=== PATIENT | male | born 1985 | race Hispanic/Latino ===

== ENCOUNTER 2019-04-14 01:43 | Emergency (ER) | payer SELFPAY ==
[2019-04-14 01:52] VITALS: BP 137/80
--- NOTE | 2019-04-14 03:37 | Emergency Department Report ---
- General Chief complaint: Extremity Injury, Lower Stated complaint: BITING SENSATION ON THIGH AND LEG Time Seen by Provider: 04/14/19 03:19 Source: patient Mode of arrival: Ambulatory Limitations: No Limitations - History of Present Illness Initial comments: 33-year-old male presents to emergency department complaining of possible ingestion of a parasite. States he went over some friend's house who brought some full back from [place] without clearing customs which she consumed O about 2 weeks ago. He states that one week after eating food. He felt little bumps on his arm that felt like it had movement underneath. He developed another one to his forearm and then one to the left hip. All bones are side. No discharge MD complaint: rash, insect bite/sting -: Gradual, days(s) Tetanus Up to Date: no Location: LUE, LLE Severity: mild Quality: dull Consistency: constant Improves with: none Worsens with: none Context: none Associated symptoms: itching - Related Data Previous Rx's Medication Instructions Recorded Last Taken Type HYDROcodone/APAP 5-325 [[place] 1 each PO Q6HR PRN #10 tablet 07/01/13 Unknown Rx 5/325 mg] Ondansetron [Zofran] 4 mg PO Q6HR PRN #10 tablet 07/01/13 Unknown Rx HYDROcodone/APAP 5-325 [[place] 1 each PO Q6HR PRN #10 tablet 02/11/15 Unknown Rx 5/325] Ibuprofen [Motrin] 800 mg PO Q8H PRN #30 tablet 02/11/15 Unknown Rx methOCARBAMOL [Robaxin] 500 mg PO Q6H PRN #20 tablet 02/11/15 Unknown Rx Mebendazole (Nf) [Vermox Chew (Nf)] 100 mg PO ONCE #1 tab 04/14/19 Unknown Rx Permethrin 5% [Acticin 5% CREAM] 60 gm TP ONCE #1 tube 04/14/19 Unknown Rx Allergies Allergy/AdvReac Type Severity Reaction Status Date / Time No Known Allergies Allergy Unverified 07/01/13 09:50 Abscess Boil HPI - HPI Chief Complaint: Extremity Injury, Lower Stated Complaint: BITING SENSATION ON THIGH AND LEG Time Seen by Provider: 04/14/19 03:19 Home Medications: Previous Rx's Medication Instructions Recorded Last Taken Type HYDROcodone/APAP 5-325 [[place] 1 each PO Q6HR PRN #10 tablet 10/12/13 Unknown Rx 5/325 mg] Ondansetron [Zofran] 4 mg PO Q6HR PRN #10 tablet 07/01/13 Unknown Rx HYDROcodone/APAP 5-325 [[place] 1 each PO Q6HR PRN #10 tablet 02/11/15 Unknown Rx 5/325] Ibuprofen [Motrin] 800 mg PO Q8H PRN #30 tablet 02/11/15 Unknown Rx methOCARBAMOL [Robaxin] 500 mg PO Q6H PRN #20 tablet 02/11/15 Unknown Rx Mebendazole (Nf) [Vermox Chew (Nf)] 100 mg PO ONCE #1 tab 04/14/19 Unknown Rx Permethrin 5% [Acticin 5% CREAM] 60 gm TP ONCE #1 tube 04/14/19 Unknown Rx Allergies/Adverse Reactions: Allergies Allergy/AdvReac Type Severity Reaction Status Date / Time No Known Allergies Allergy Unverified 07/01/13 09:50 ED Review of Systems ROS: Stated complaint: BITING SENSATION ON THIGH AND LEG Other details as noted in HPI Comment: All other systems reviewed and negative ED Past Medical Hx - Past Medical History Previous Medical History?: Yes Additional medical history: Chronic Pancreatitis, Left chest lump - Surgical History Past Surgical History?: No - Social History Smoking Status: Current Every Day Smoker Substance Use Type: None - Medications Home Medications: Home Medications Medication Instructions Recorded Confirmed Last Taken Type HYDROcodone/APAP 5-325 [[place] 1 each PO Q6HR PRN #10 tablet 07/01/13 Unknown Rx 5/325 mg] Ondansetron [Zofran] 4 mg PO Q6HR PRN #10 tablet 07/01/13 Unknown Rx HYDROcodone/APAP 5-325 [[place] 1 each PO Q6HR PRN #10 tablet 02/11/15 Unknown Rx 5/325] Ibuprofen [Motrin] 800 mg PO Q8H PRN #30 tablet 02/11/15 Unknown Rx methOCARBAMOL [Robaxin] 500 mg PO Q6H PRN #20 tablet 02/11/15 Unknown Rx Mebendazole (Nf) [Vermox Chew (Nf)] 100 mg PO ONCE #1 tab 04/14/19 Unknown Rx Permethrin 5% [Acticin 5% CREAM] 60 gm TP ONCE #1 tube 07/26/19 Unknown Rx ED Physical Exam - General Limitations: No Limitations General appearance: alert, in no apparent distress - Head Head exam: Present: atraumatic, normocephalic - Eye Eye exam: Present: normal appearance, PERRL, EOMI. Absent: scleral icterus, conjunctival injection, periorbital swelling Pupils: Present: normal accommodation. Absent: unequal - ENT ENT exam: Present: normal exam, mucous membranes moist, TM's normal bilaterally - Neck Neck exam: Present: normal inspection - Respiratory Respiratory exam: Present: normal lung sounds bilaterally. Absent: respiratory distress, wheezes, rales, accessory muscle use, decreased breath sounds, prolonged expiratory - Cardiovascular Cardiovascular Exam: Present: regular rate, normal rhythm. Absent: systolic murmur, diastolic murmur, rubs, gallop - GI/Abdominal GI/Abdominal exam: Present: soft, normal bowel sounds. Absent: distended, guarding, hyperactive bowel sounds, hypoactive bowel sounds, mass, bruit, pulsatile mass - Rectal Rectal exam: Present: deferred - Extremities Exam Extremities exam: Present: normal inspection, full ROM, normal capillary refill - Back Exam Back exam: Present: normal inspection. Absent: CVA tenderness (R), CVA tenderness (L) - Neurological Exam Neurological exam: Present: alert, oriented X3 - Psychiatric Psychiatric exam: Present: normal affect, normal mood - Skin Skin exam: Present: warm, dry, intact, normal color. Absent: rash ED Course Vital Signs 04/14/19 01:46 Temperature 98.3 F Pulse Rate 102 H Respiratory 22 Rate Blood Pressure 137/80 O2 Sat by Pulse 99 Oximetry ED Medical Decision Making - Medical Decision Making 33-year-old male presents to emergency department complaining of possible insect or parasite infestation. No parasitic discouragement in stool. No visual evidence of parasitic infection symptoms p.m. He does have linear indurated regions alone. Venous lines with no lymphangitis, abscess or cellulitis. No lymphadenopathy is noted. Areas on the forearm and just above the antecubital fossa on the left bicep. One area to the left hip as well as unable to visualize left hip due to patient cooperation. Patient is very whereabouts unknown parasite from [place]. Past request to be treated warrants and mites worms and mites Critical care attestation.: If time is entered above; I have spent that time in minutes in the direct care of this critically ill patient, excluding procedure time. ED Disposition Clinical Impression: Rash and nonspecific skin eruption Disposition: DC-01 TO HOME OR SELFCARE Is pt being admited?: No Does the pt Need Aspirin: No Condition: Stable Instructions: Acute Rash (ED) Prescriptions: Permethrin 5% [Acticin 5% CREAM] 60 gm TP ONCE #1 tube Mebendazole (Nf) [Vermox Chew (Nf)] 100 mg PO ONCE #1 tab Referrals: SALMA CAR MD [Primary Care Provider] - 3-5 Days
== END 2019-04-14 04:29 | disposition home or self-care (01) ==
LOC: ED 01:43
DX: R21 Rash and other nonspecific skin eruption (principal); Z87.19 Personal history of other diseases of the digestive system; F17.200 Nicotine dependence, unspecified, uncomplicated; Z79.899 Other long term (current) drug therapy
CPT/HCPCS: 99282

== ENCOUNTER 2019-04-22 23:13 | Emergency (ER) | payer SELFPAY ==
[2019-04-22 23:19] VITALS: BP 132/80
[2019-04-23] MEDS ORDERED: NACL 0.9% 1000 ML 1,000 ML IV ONE (00:31)
--- NOTE | 2019-04-23 00:56 | XRay Report ---
CHEST 2 VIEWS INDICATION / CLINICAL INFORMATION: cough. COMPARISON: None available. FINDINGS: SUPPORT DEVICES: None. HEART / MEDIASTINUM: No significant abnormality. LUNGS / PLEURA: No significant pulmonary or pleural abnormality. No pneumothorax. ADDITIONAL FINDINGS: No significant additional findings. IMPRESSION: 1. No acute findings. Signer Name: Archie Fox MD Signed: 04/23/2019 12:51 AM Workstation Name: [id number]
[2019-04-23 01:20] LABS: Hemoglobin 12.5 gm/dl (11.8-15.2); Mean Corpuscular HGB Conc 33 % (32-34); Mean Corpuscular Volume 88 fl (84-94); Platelet Count 317 K/mm3 (140-440); Red Cell Distribution Width 14.3 % (13.2-15.2)
[2019-04-23 01:41] LABS: Bilirubin,Urine NEG (Negative); Blood,Urine NEG (Negative); Color,Urine Straw (Yellow); Protein,Urine <15 mg/dL mg/dL (Negative); Urobilinogen,Urine < 2.0 mg/dL (<2.0); WBC,Urine < 1.0 /HPF (0.0-6.0)
[2019-04-23 01:43] LABS: Albumin 4.2 g/dL (3.9-5); BUN/Creatinine Ratio 20; Blood Urea Nitrogen 14 mg/dL (9-20); Calcium 9.4 mg/dL (8.4-10.2); Hemolysis Index 105
[2019-04-23 01:48] LABS: Alanine Aminotransferase 15 units/L (7-56)
[2019-04-23 01:51] LABS: Amphetamine Screen,Urine PRESUMPTIVE NEGATIVE; Benzodiazepines Screen,Urine PRESUMPTIVE NEGATIVE; Cannabinoid Screen,Urine PRESUMPTIVE NEGATIVE; Methadone Screen,Urine PRESUMPTIVE NEGATIVE
[2019-04-23 02:04] LABS: Cocaine Screen,Urine PRESUMPTIVE POSITIVE; Opiate Screen,Urine PRESUMPTIVE POSITIVE
--- NOTE | 2019-04-23 02:48 | Emergency Department Report ---
ED General Adult HPI - General Chief complaint: Extremity Injury, Lower Stated complaint: LEG PAIN Time Seen by Provider: 04/23/19 00:30 Source: patient Mode of arrival: Ambulatory Limitations: No Limitations - History of Present Illness Initial comments: Patient is a 33-year-old white male who presents to the ED with complaint of persistent swollen knots on his forearms bilaterally for the last 2 weeks. Patient states that the not soft and sometimes painful, and that he has stinging sensation as if insects crawling on his bilateral forearms. Patient states that he has been to different emergency department to find out what could be causing these sensations that that no one has been able to tell him the etiology of these sensations. Patient denies fever, chills, nausea, vomiting, chest pain, shortness of breath, change in vision, headache, traumatic injury, back pain, suicidal ideation or homicidal ideation, abdominal pain or dysuria and hematuria. MD Complaint: bilateral forearm swollen knots -: Gradual, week(s) (2) Location: upper extremity (bilateral forearms) Radiation: non-radiation Severity scale (0 -10): 0 Quality: dull Consistency: constant Improves with: none Worsens with: none Associated Symptoms: denies other symptoms. denies: confusion, chest pain, cough, fever/chills, headaches, malaise, nausea/vomiting, seizure, shortness of breath, syncope, weakness Treatments Prior to Arrival: none - Related Data Previous Rx's Medication Instructions Recorded Last Taken Type HYDROcodone/APAP 5-325 [[place] 1 each PO Q6HR PRN #10 tablet 07/01/13 Unknown Rx 5/325 mg] Ondansetron [Zofran] 4 mg PO Q6HR PRN #10 tablet 07/01/13 Unknown Rx HYDROcodone/APAP 5-325 [[place] 1 each PO Q6HR PRN #10 tablet 02/11/15 Unknown Rx 5/325] Ibuprofen [Motrin] 800 mg PO Q8H PRN #30 tablet 02/11/15 Unknown Rx methOCARBAMOL [Robaxin] 500 mg PO Q6H PRN #20 tablet 02/11/15 Unknown Rx Mebendazole (Nf) [Vermox Chew (Nf)] 100 mg PO ONCE #1 tab 04/14/19 Unknown Rx Permethrin 5% [Acticin 5% CREAM] 60 gm TP ONCE #1 tube 04/14/19 Unknown Rx Allergies Allergy/AdvReac Type Severity Reaction Status Date / Time No Known Allergies Allergy Unverified 07/01/13 09:50 ED Review of Systems ROS: Stated complaint: LEG PAIN Other details as noted in HPI Comment: All other systems reviewed and negative Constitutional: denies: chills, fever Eyes: denies: eye pain, eye discharge, vision change ENT: denies: ear pain, throat pain Respiratory: denies: cough, shortness of breath, wheezing Cardiovascular: denies: chest pain, palpitations Endocrine: no symptoms reported Gastrointestinal: denies: abdominal pain, nausea, diarrhea Genitourinary: denies: urgency, dysuria Musculoskeletal: arthralgia, other (swollen knots on forearms bilaterally). denies: back pain, joint swelling Skin: denies: rash, lesions Neurological: denies: headache, weakness, paresthesias Psychiatric: denies: anxiety, depression Hematological/Lymphatic: denies: easy bleeding, easy bruising ED Past Medical Hx - Past Medical History Previous Medical History?: Yes Additional medical history: Chronic Pancreatitis, Left chest lump - Surgical History Past Surgical History?: No - Social History Smoking Status: Current Every Day Smoker - Medications Home Medications: Home Medications Medication Instructions Recorded Confirmed Last Taken Type HYDROcodone/APAP 5-325 [[place] 1 each PO Q6HR PRN #10 tablet 07/01/13 Unknown Rx 5/325 mg] Ondansetron [Zofran] 4 mg PO Q6HR PRN #10 tablet 07/01/13 Unknown Rx HYDROcodone/APAP 5-325 [[place] 1 each PO Q6HR PRN #10 tablet 02/11/15 Unknown Rx 5/325] Ibuprofen [Motrin] 800 mg PO Q8H PRN #30 tablet 02/11/15 Unknown Rx methOCARBAMOL [Robaxin] 500 mg PO Q6H PRN #20 tablet 02/11/15 Unknown Rx Mebendazole (Nf) [Vermox Chew (Nf)] 100 mg PO ONCE #1 tab 04/14/19 Unknown Rx Permethrin 5% [Acticin 5% CREAM] 60 gm TP ONCE #1 tube 04/14/19 Unknown Rx ED Physical Exam - General Limitations: No Limitations General appearance: alert, in no apparent distress - Head Head exam: Present: atraumatic, normocephalic, normal inspection - Eye Eye exam: Present: normal appearance, PERRL, EOMI Pupils: Present: normal accommodation - ENT ENT exam: Present: normal exam, normal orophraynx, mucous membranes moist, TM's normal bilaterally, normal external ear exam - Neck Neck exam: Present: normal inspection, full ROM. Absent: tenderness, meningismus, lymphadenopathy, thyromegaly - Respiratory Respiratory exam: Present: normal lung sounds bilaterally. Absent: respiratory distress, wheezes, rales, rhonchi, chest wall tenderness - Cardiovascular Cardiovascular Exam: Present: normal rhythm, tachycardia, normal heart sounds. Absent: systolic murmur, diastolic murmur, rubs, gallop - GI/Abdominal GI/Abdominal exam: Present: soft, normal bowel sounds. Absent: tenderness, guarding, rigid, hyperactive bowel sounds, hypoactive bowel sounds, organomegaly - Rectal Rectal exam: Present: deferred - Extremities Exam Extremities exam: Present: normal inspection - Back Exam Back exam: Present: normal inspection - Neurological Exam Neurological exam: Present: alert, oriented X3 - Psychiatric Psychiatric exam: Present: normal affect, normal mood - Skin Skin exam: Present: warm, dry, intact, normal color. Absent: rash ED Course Vital Signs 04/22/19 04/22/19 23:18 23:20 Temperature 98.4 F 98.4 F Pulse Rate 108 H 108 H Respiratory 18 18 Rate Blood Pressure 132/80 132/80 O2 Sat by Pulse 97 97 Oximetry - Reevaluation(s) Reevaluation #1: 04/23/19 02:50 This is a 33-year-old male who presented to the ED read swollen knots on bilateral forearms with sensations of crawling objects in his forearms. In the ED, the patient is alert and oriented 3, tachycardic and anxious and diaphoretic during the physical exam. Labs were drawn including urinalysis and urine drug screen and chest x-ray was also performed. Lab test results show mild leukocytosis of 11,500 and urine drug screen positive for opiates and cocaine. Chest x-ray shows no acute cardiopulmonary abnormalities. ED Medical Decision Making - Lab Data Result diagrams: 04/23/19 00:46 04/23/19 00:46 - Radiology Data Radiology results: report reviewed, image reviewed Chest x-ray shows no acute cardiopulmonary abnormalities - Medical Decision Making This is a 33-year-old male who presented to the ED read swollen knots on bilateral forearms with sensations of crawling objects in his forearms. In the ED, the patient is alert and oriented 3, tachycardic and anxious and diaphoretic during the physical exam. Labs were drawn including urinalysis and urine drug screen and chest x-ray was also performed. Lab test results show mild leukocytosis of 11,500 and urine drug screen positive for opiates and cocaine. Chest x-ray shows no acute cardiopulmonary abnormalities. The patient's symptoms are consistent with tactile hallucination due to the patient's chronic cocaine and opiate drug abuse. The patient's tachycardia is due to the patient's cocaine and opiate abuse. Patient eloped from the ED prior to discharge from the ED and stated that he cannot wait for the test results.. - Differential Diagnosis Tactile hallucinations; Cocaine abuse, Opiate abuse; anxiety Critical care attestation.: If time is entered above; I have spent that time in minutes in the direct care of this critically ill patient, excluding procedure time. ED Disposition Clinical Impression: Cocaine abuse, Continuous tactile hallucinations, Opioid abuse, Anxiety as acute reaction to gross stress Disposition: Z-07 ELOPED Is pt being admited?: No Does the pt Need Aspirin: No Condition: Stable Instructions: Cocaine Abuse (ED), Polysubstance Abuse (ED), Anxiety (ED) Referrals: SALMA CAR MD [Primary Care Provider] - 3-5 Days Time of Disposition: 02:30 Print Language: HONDURAN
[2019-04-23 03:31] LABS: Basophils % (Manual) 0 % (0.0-1.8); Total Cells Counted 100
[2019-04-23 03:32] LABS: Anisocytosis 1+; Platelet Estimate Consistent w Auto
== END 2019-04-23 02:30 | disposition left against medical advice (07) ==
LOC: ED 23:13
DX: R44.2 Other hallucinations (principal); F11.10 Opioid abuse, uncomplicated; F41.9 Anxiety disorder, unspecified; R22.33 Localized swelling, mass and lump, upper limb, bilateral; K86.1 Other chronic pancreatitis; F17.200 Nicotine dependence, unspecified, uncomplicated; Z79.899 Other long term (current) drug therapy
CPT/HCPCS: 36415; 71046; 80053; 80307; 81001; 85007; 85025; J7030

== ENCOUNTER 2022-03-18 22:12 | Emergency (ER) | payer SELFPAY ==
[2022-03-18 23:03] VITALS: BP 161/104
== END 2022-03-18 23:00 | disposition left against medical advice (07) ==
LOC: ED 22:12
DX: M54.2 Cervicalgia (principal); M25.511 Pain in right shoulder; Z53.21 Procedure and treatment not carried out due to patient leaving prior to being seen by health care provider